=== PATIENT | female | born 1970 | race Caucasian/White ===

== ENCOUNTER 2020-12-11 10:47 | Inpatient (IN) | payer OTHER ==
[~2020-12-11] VITALS: Ht 172.7 cm; Wt 113.8 kg
--- NOTE | ~2020-12-11 | O ---
[facility] [place] [address] OPERATIVE REPORT Name: ANUM PIERRE Room #: 453-P ADM IN M.R.#: [id number] Admission: 12/11/20 Attend Phys: Lito Gomez MD Discharge: Date of : 68 Report #: [id number] THIS REPORT FOR: cc: Beny Houston MD, Darren E. MD Joseph, Sigi P. MD ~ DATE OF SERVICE: 12/12/2020 PREOPERATIVE DIAGNOSIS: Acute cholecystitis. POSTOPERATIVE DIAGNOSIS: Acute cholecystitis. OPERATIVE PROCEDURE DONE: Laparoscopic cholecystectomy. OPERATING SURGEON: Lito Gomez MD INDICATIONS FOR THE PROCEDURE: The patient is a 50-year-old female who presented with right upper quadrant pain. Clinical exam and CT scan showed features of acute cholecystitis. The patient was advised laparoscopic cholecystectomy. The patient showed understanding and agreed to proceed. PROCEDURE IN DETAIL: After explaining to the patient in detail and informed consent was obtained, the patient was identified in the preoperative holding area. The patient was transferred to the operating room and was placed in supine position. Sequential compression devices were placed for DVT prophylaxis. Preoperative antibiotics were given. After induction of anesthesia, the abdomen was prepped and draped in a sterile fashion. Through a right upper quadrant 1 cm incision and using Optiview technique, peritoneal cavity was entered and pneumoperitoneum was created. Thereafter, under direct vision, another 5 mm trocar was placed through a supraumbilical incision, another 5 mm trocar was placed in the epigastrium and one in the right lateral subcostal region. On initial inspection, the gallbladder appeared distended and edematous and inflamed. Using a laparoscopic needle, I had decompressed the gallbladder and part of the bile appeared purulent. The gallbladder was then retracted and the peritoneal reflections along the neck of the gallbladder was gently dissected off. Cystic duct was identified and isolated from the surrounding structures. Cystic artery was identified and isolated from the surrounding structures. Cystic duct was then doubly clipped proximally and single clip applied distally and was then divided. Cystic artery also was then divided in a similar fashion. The gallbladder was gently dissected off the liver bed using hook electrocautery. Absolute hemostasis was achieved. Gallbladder was retrieved using an EndoCatch through the lateral most incision. Incisions were then closed with a 4-0 Monocryl, the lateral incision was closed with 0 Vicryl for the fascia. Skin was closed with a 4-0 Monocryl. Dermabond was applied. The patient was stable at the end of the procedure. The patient was awoken from anesthesia and was transferred to the recovery room in stable condition. [address] [address] OPERATIVE REPORT Name: IGNACIOADRIÁNH Hector Room #: 453-P [facility] IN ..#: [id number] Admission: 12/11/20 Attend Phys: Lito Gomez MD Discharge: Date of : 68 Report #: [id number] ESTIMATED BLOOD LOSS: Approximately 25 mL. CONDITION OF THE PATIENT: Stable. FLUIDS GIVEN: Per anesthesia notes. SPECIMEN SENT: Gallbladder. COMPLICATIONS: None. ANESTHESIA: General anesthesia. By: [id number] Lito Gomez MD /nt
[2020-12-11 10:54] VITALS: BP 184/126
[2020-12-11 11:01] LABS: URINE BILIRUBIN NEGATIVE (Negative); URINE BLOOD NEGATIVE (Negative); URINE CLARITY CLEAR; URINE COLOR YELLOW; URINE GLUCOSE-RANDOM* NEGATIVE (Negative); URINE KETONES NEGATIVE (Negative); URINE LEUKOCYTES-REFLEX TRACE (Negative); URINE NITRITE-REFLEX NEGATIVE (Negative); URINE PROTEIN (DIPSTICK) NEGATIVE (Negative); URINE UROBILINOGEN 0.2 E.U./dl (0.2-1.0)
[2020-12-11 11:19] LABS: ABSOLUTE NEUTROPHILS 11.9 thou/uL (1.4-8.2); BASOPHILS 0.6 % (0.0-2.0); EOSINOPHILS 1.1 % (0.0-3.0); HEMATOCRIT 42.5 % (37.0-47.0); HEMOGLOBIN 14.1 gm/dL (12.0-15.0); LYMPHOCYTES 15.9 % (24.0-44.0); MCH 28.5 pg (26.0-34.0); MCHC 33.2 g/dL (28.0-37.0); MCV 85.8 fL (80.0-100.0); MONOCYTES 3.7 % (1.0-8.0); PLATELET COUNT 456 thou/uL (150-400); POLYS 78.7 % (36.0-66.0); RBC 4.96 mil/uL (4.20-5.00); RDW 13.1 % (10.5-14.5); WBC 15.1 thou/uL (4.0-11.0)
[2020-12-11 11:28] LABS: CALCIUM 9.4 mg/dL (8.5-10.1); CREATININE 0.9 mg/dL (0.6-1.0); POTASSIUM 3.7 mmol/L (3.5-5.1)
[2020-12-11 11:35] LABS: TOTAL BILIRUBIN 0.4 mg/dL (0.2-1.0); TOTAL PROTEIN 7.8 g/dL (6.4-8.2)
[2020-12-11] MEDS ORDERED: CALCIUM CARBON500 MG PO (14:30)
[2020-12-11] MEDS ORDERED: ANIMAL CHEWS1 EAC1 PO (14:30)
[2020-12-11] MEDS ORDERED: ASA81BEC PO (14:31)
[2020-12-11] MEDS ORDERED: IRON18 M1 PO (14:31)
[2020-12-11] MEDS ORDERED: KRILL OIL 5001 EAC1 PO (14:31)
[2020-12-11] MEDS ORDERED: OMEPRAZOLE20 M2 PO (14:32)
[2020-12-11] MEDS ORDERED: ZYRTEC10 M5 PO (14:33)
[2020-12-11] MEDS ORDERED: CLIMARA1 EAC3 PO (14:33)
[2020-12-11] MEDS ORDERED: FENOFIBRATE160 MG PO (14:34)
[2020-12-11] MEDS ORDERED: LEXAPRO20 MG PO (14:34)
[2020-12-11] MEDS ORDERED: SYNTHROID175 MC1 PO (14:34)
[2020-12-11 15:10] VITALS: BP 171/99
[2020-12-11 15:11] VITALS: BP 179/94
[2020-12-11 15:27] VITALS: BP 156/88
[2020-12-11 16:44] VITALS: BP 177/79
--- NOTE | 2020-12-11 17:01 | NUR ---
PT ADMITTED TO FLOOR AROUND 1530. ONLY CONCERNS OF PAIN. VITAL SIGNS STABLE, NO OXYGEN REQUIRED, FALL PRECAUTIONS IN PLACE. PT SIGNED ADMIT PACKET AND UNDERSTANDS ALL MEDICATION. PAIN CURRENTLY BEING CONTROLLED BY IV PAIN MEDS. WILL ATTEMPT TO CALL FOR MORE PAIN MANAGEMENT PER PT
[2020-12-11 20:07] VITALS: BP 153/79
[2020-12-12] VITALS (7 sets, daily range): BP systolic 141–169; BP diastolic 86–99
--- NOTE | 2020-12-12 05:09 | NUR ---
Assumed pt care at 1900. A/OX4,VSS. C/o RUQ/headache medicated per EMAR with intermittent relief reported. C/o nausea as well medicated with Zofran with relief reported. Up ad marilu in room. SR on telemetry. Pt has been NPO since midnight for isidro martinez today. Resting quietly at this time,will continue to monitor pt.
--- NOTE | 2020-12-12 10:44 | NUR ---
Assumed pt care at 7am.Pt in bed resting and c/o nausea and abdominal pain rated 7/10. Zofran and fentanyl ivp given as ordered. Received call from Preop that pt will be picking up at 1030 for surgery.Pt notified and dhe called her family.At 1025,pt left per bed accompanied by transporter and cryogenic transport driver.
[2020-12-13 00:33] VITALS: BP 153/91
--- NOTE | 2020-12-13 05:20 | NUR ---
Assumed pt care at 1900. A/OX4,VSS. C/o pain to abd/headache,medicated per EMAR with relief reported. Denies N/V. Up with SBA/IV pole to the bathroom. Has 4 lap sites on abd, C/D/I with dermabond. SR on telemetry. Resting w/o distress noted will continue to monitor pt.
[2020-12-13 07:58] VITALS: BP 140/75
[2020-12-13] MEDS ORDERED: AUGMENTIN 875-1 EACH PO (09:00)
[2020-12-13] MEDS ORDERED: NORCO5 PO (09:29)
[2020-12-13 11:49] VITALS: BP 140/75
--- NOTE | 2020-12-13 12:11 | NUR ---
PT ADMITTED RELATED TO ACUTE CHOLECYSTITIS WITH CALCULI. CM REVIEWED CHART AND SPOKE WITH CARE TEAM. CM MET WITH PT AT BEDSIDE THIS DAY. PT APPEARED TO BE A&O X4. PT HAD LAP LALA Thursday12/12/20. CM ROLE INTRODUCED. PT HAD BEEN LIVING IN AN APARTMENT ALONE PT. 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 PT INDICATED NO STEPS. PT PLANS TO DC HOME. PT TO DC HOME TO SELF CARE THIS DAY. NO OTHER CM INTERVENTION INDICATED. CASE CLOSED.
--- NOTE | 2020-12-13 12:31 | NUR ---
Assumed pt care at 7am.Pt in and out of bed independently. Assessment completed.vss.Pt reporeted feeling better today and excited about dc home after lunch. Am meds gien with breakfast and well tolerated.Dr Cabezas here, dc order noted. Dc summary compile and reviewed with pt and sister. Saline lock and telemetry dc'd. At 1230,pt dc home with sister in [place] accompanied by manager inside.
--- NOTE | 2020-12-14 13:08 | PATH ---
[facility] [address] [place] [address] PATHOLOGY RPT PROCEDURE Name: ANUM PIERRE Room #: 453-P [facility] IN M.R.#: [id number] Admission: 12/11/20 Date of : 68 Discharge: 12/13/20 Report #: [id number] Path Case #: [id number] [facility] Accession Number: [id number] . 01 Material submitted: . gallbladder - GALLBLADDER . 01 Clinical history: . LAPARSCOPIC CHOLECYSTECTOMY CHOLECYSTITIS . 02 Diagnosis: Gallbladder, cholecystectomy: - Moderate acute and chronic cholecystitis. - Cholelithiasis. . (IUV:mml; 12/13/2020) [facility] 12/13/2020 135 Local . 02 Electronically signed: . Heydi Cheatham MD, Pathologist NPI- [id number] . 01 Gross description: . Fixative: Formalin Labeled: Gallbladder Specimen received: Previously disrupted Dimensions: 8.9 x 3.1 x 2.8 cm Serosa: [place]-hernandez and covered with a mild amount of adipose tissue Lymph node: Not identified Mucosa: [place]-red, velvety Average wall thickness: Up to 0.2 cm Calculi: Present displaying bright yellow, nodular appearance admixed with a moderate amount of pale yellow mucus bile Abnormalities: None identified . A1- [place] [facility] body, fundus, and the cystic duct margin. ([facility]; 12/12/2020) NRI/NRI 12/12/2020 1843 Local . 02 Pathologist provided ICD-10: K80.10 . 02 CPT . 213664 Specimen Comment: A courtesy copy of this report has been sent to [phone], [phone] [address] PATHOLOGY RPT PROCEDURE Name: ANUM PIERRE Room #: 453-P [facility] IN ..#: [id number] Admission: 12/11/20 Date of : 68 Discharge: 12/13/20 Report #: [id number] Path Case #: [id number] Specimen Comment: [id number] Specimen Comment: Report sent to / DR CARVER Specimen Comment: A duplicate report has been generated due to demographic updates. Performed at: 01 [facility] [address], [place], [place] [id number] MD Onofre Aldridge MD Phone: [phone] Performed at: [address] [id number] MD Heydi Cheatham MD Phone: [phone]
== END 2020-12-13 13:12 | disposition home or self-care (01) | DRG 419 ==
LOC: ER 10:47 → 4W 13:47 → EROBS 13:47 → 4W 15:11
PROVIDERS: Emergency Medicine; ADMIT Surgery; ATTEND Surgery
PROC: 0FT44ZZ Resection of Gallbladder, Percutaneous Endoscopic Approach (ICD-10-PCS; principal; 2020-12-12)
DX: K81.0 Acute cholecystitis (principal); E89.0 Postprocedural hypothyroidism; K08.409 Partial loss of teeth, unspecified cause, unspecified class; Z20.822 Contact with and (suspected) exposure to COVID-19; Z90.710 Acquired absence of both cervix and uterus; Z79.82 Long term (current) use of aspirin; Z79.899 Other long term (current) drug therapy
CPT/HCPCS: 10045; 50010; 50101; 50411; 50555; 51489; 52265; 52266; 53307; 54022; 54118; 55245; 56462; 56525; 56526; 57257; 58574; 62110; 62900; 70005